=== PATIENT | female | born 1995 | race Hispanic/Latino ===

== ENCOUNTER 2017-01-17 21:24 | Observation (INO) | payer MEDICAID, OTHER ==
[2017-01-17 21:34] VITALS: BMI 22.3
[2017-01-17 21:37] VITALS: O2SAT 100
[2017-01-17] MEDS ORDERED: Sodium Chloride 0.9% 1,000 ML IV STA (21:53)
--- NOTE | 2017-01-17 22:23 | ED PDOC ---
HPI: Psych/Substance Abuse Time Seen by Provider: 01/17/17 21:50 Chief Complaint (Nursing): Substance Abuse Chief Complaint (Provider): Overdose History Per: Patient, Other (roommates) History/Exam Limitations: no limitations Onset/Duration Of Symptoms: Hrs (1 hour prior to arrival) Current Symptoms Are (Timing): Still Present Suicide/Self Injury Attempted (Context): Ingestion Ingestion Of Substance: "2 handfuls" of Advil (200 mg tablets) Modifying Factor(s): Alcohol (patient states that she has been drinking all day) Severity: Moderate Associated Symptoms: Depression, Suicidal Thoughts, Suicidal Plan, Other ( nausea and vomiting) Additional Complaint(s): Kera Espitia is a 21 year old female, with a past medical history of depression (since the age of 14), that presents to the emergency department via EMS for the evaluation of s/p overdose on "2 handfuls" of Advil (200 mg tablets) , that the patient experienced one hour prior to arrival. Patient recently saw her tea room manager who would not provide her with new Lexapro RX due to scope of practice issues. Patient verbalizes suicidal ideation with one attempt in the past, prior to this one, s/p overdosing on Advil. Patient admits to drinking alcohol all day. Associated depression, nausea, and vomiting are currently present. PMD: Dr Holcomb Past Medical History Reviewed: Historical Data, Nursing Documentation, Vital Signs Vital Signs: Last Vital Signs Temp 98.6 F 01/17/17 21:34 Pulse 117 H 01/17/17 21:34 Resp 16 01/17/17 21:34 BP 123/93 H 01/17/17 21:34 Pulse Ox 100 01/17/17 21:34 - Medical History PMH: Depression - Surgical History Other surgeries: Oral Surgery - Family History Family History: States: No Known Family Hx - Social History Alcohol: Occasional Drugs: Prescription medications - Allergies Allergies/Adverse Reactions: Allergies Allergy/AdvReac Type Severity Reaction Status Date / Time No Known Allergies Allergy Verified 01/17/17 21:34 Review of Systems ROS Statement: Except As Marked, All Systems Reviewed And Found Negative Gastrointestinal: Positive for: Nausea, Vomiting Psych: Positive for: Depression, Suicidal ideation Physical Exam - Reviewed Nursing Documentation Reviewed: Yes Vital Signs Reviewed: Yes - Physical Exam Appears: Positive for: Non-toxic, No Acute Distress Head Exam: Positive for: ATRAUMATIC, NORMOCEPHALIC Skin: Positive for: Normal Color, Warm, Dry Eye Exam: Positive for: Normal appearance, EOMI, PERRL Cardiovascular/Chest: Positive for: Regular Rate, Rhythm. Negative for: Murmur Respiratory: Positive for: Normal Breath Sounds. Negative for: Respiratory Distress Gastrointestinal/Abdominal: Positive for: Normal Exam, Soft. Negative for: Tenderness Back: Positive for: Normal Inspection. Negative for: L CVA Tenderness, R CVA Tenderness Extremity: Positive for: Normal ROM. Negative for: Tenderness, Swelling Neurologic/Psych: Positive for: Alert, Oriented, Mood/Affect (labile affect, tearful) - Laboratory Results Result Diagrams: 01/17/17 22:30 01/17/17 22:30 - ECG O2 Sat by Pulse Oximetry: 100 (RA) Pulse Ox Interpretation: Normal Medical Decision Making Medical Decision Makin:50 Initial Impression: 21 year old female with setting of a known depressive disorder and suicidal ideation. Initial Plan: * EKG * Alcohol Serum * CBC * CMP * PT/PTT * Urine Drug Screen * Urine * Urinalysis * Acetaminophen * Salicylate * Accucheck * Sodium Chloride 0.9% 1,000 ml IV at 1,000 mls/hr * Pantoprazole 40 mg IV * Ondansetron 8 mg IV * Poison Control Consult * Crisis Evaluation [id number]: As per reworker and Dr. robertson psychiatrist tape controlled machine stitcher patient doesnt meet the criteria for admission. Diagnosis: depression & overdose [facility] and [facility]. Scribe Attestation: Documented by Bay Louis, acting as a scribe for Quincy Fleming MD. Provider Scribe Attestation: All medical record entries made by the Scribe were at my direction and personally dictated by me. I have reviewed the chart and agree that the record accurately reflects my personal performance of the history, physical exam, medical decision making, and the department course for this patient. I have also personally directed, reviewed, and agree with the discharge instructions and disposition. ED OBSERVATION - Observation admission statement Patient is being placed in observation because:: Pending crisis evaluation and sobriety. - Progress Note Progress Note: 01/18/17 11:00 Vitals are clear and stable. As per reworker and Dr. robertson psychiatrist tape controlled machine stitcher patient doesnt meet criteria for admission Diagnosis: depression & overdose Referred to [facility] Disposition - Clinical Impression Clinical Impression: Overdose, Depression - Patient ED Disposition Is Patient to be Admitted: No Counseled Patient/Family Regarding: Studies Performed, Diagnosis, Need For Followup - Disposition Disposition: Routine/Home Disposition Time: 04:50 Condition: STABLE
[2017-01-17 22:38] LABS: BASO % 0.5 % (0.0-2.0); HEMATOCRIT 36.7 % (34.0-47.0); LYMPH # 1.5 K/uL (1.0-4.3); MEAN CELL VOLUME 96.1 fl (81.0-99.0); MEAN CORPUSCULAR HEMOGLOBIN 33.6 pg (27.0-31.0); MEAN PLATELET VOLUME 7.7 fl (7.2-11.7); MONO # 0.5 K/uL (0.0-0.8); MONO % 11.9 % (0.0-10.0); NEUT # 1.8 K/uL (1.8-7.0); NEUT % 47.6 % (50.0-75.0); NRBC % 0.2 % (0.0-0.0); RED CELL DISTRIBUTION WIDTH 12.8 % (11.5-14.5); WHITE BLOOD COUNT 3.8 K/uL (4.8-10.8)
[2017-01-17 22:50] LABS: ALB/GLOB RATIO 1.8 (1.0-2.1); ALCOHOL SERUM 233 mg/dl (0-10); ALKALINE PHOSPHATASE 59 U/L (38-126); ALT/SGPT 29 U/L (9-52); AST/SGOT 28 U/L (14-36); BILIRUBIN,TOTAL 0.4 mg/dl (0.2-1.3); BLOOD UREA NITROGEN 5 mg/dl (7-17); CARBON DIOXIDE 23 mmol/L (22-30); CHLORIDE 107 mmol/L (98-107); GFR AFRICAN-AMERICAN > 60; GLUCOSE,RANDOM 89 mg/dL (65-105); POTASSIUM 3.8 MMOL/L (3.6-5.0); SODIUM 145 mmol/l (132-148); TOTAL PROTEIN 7.2 G/DL (6.3-8.2)
[2017-01-17 23:00] LABS: PARTIAL THROMBOPLASTIN TIME 21.8 SECONDS (23.3-32.5)
[2017-01-18 01:05] LABS: RBC URINE 4 /hpf (0-3); URINE BILIRUBIN NEGATIVE (NEGATIVE); URINE BLOOD NEGATIVE (NEGATIVE); URINE COLOR YELLOW (YELLOW); URINE GLUCOSE (UA) NEG (Normal); URINE KETONE NEGATIVE (NEGATIVE); URINE LEUKOCYTE ESTERASE NEG Leu/uL (Negative); URINE PROTEIN NEGATIVE (NEGATIVE); URINE UROBILINOGEN 0.2-1.0 mg/dL (0.2-1.0); WBC URINE < 1 /hpf (0-5)
[2017-01-18 05:49] VITALS: BP 119/72; PULSE 93; RESP 14; TEMP 98.4
--- NOTE | 2017-01-19 08:53 | CARD ---
APPROVED REPORT EKG Measurement Heart [id number] <Conclusion> Sinus tachycardia Otherwise normal ECG
== END 2017-01-18 05:20 | disposition home or self-care (01) ==
LOC: H.ER 21:24 → H.EROBSV 23:00
PROVIDERS: ADMIT Emergency Medicine; ATTEND Emergency Medicine
DX: T39.312A Poisoning by propionic acid derivatives, intentional self-harm, initial encounter (principal); Y92.9 Unspecified place or not applicable; R45.851 Suicidal ideations; F32.9 Major depressive disorder, single episode, unspecified

== ENCOUNTER 2018-12-15 10:12 | Emergency (ER) | payer OTHER ==
[2018-12-15 10:33] VITALS: RESP 16; BMI 21.4
--- NOTE | 2018-12-15 10:55 | ED PDOC ---
HPI: Abdomen Time Seen by Provider: 12/15/18 10:34 Chief Complaint (Nursing): Abdominal Pain History Per: Patient Onset/Duration Of Symptoms: Days (2-3) Current Symptoms Are (Timing): Still Present Severity: Moderate Location Of Pain/Discomfort: RLQ Quality Of Discomfort: Sharp Associated Symptoms: Nausea. denies: Fever, Vomiting, Diarrhea Exacerbating Factors: None Alleviating Factors: None Additional Complaint(s): referred from urgent care for 2-3 day h/o sharp RLQ abd pain assoc with nausea. denies vomiting or diarrhea. denies urinary sxs. LMP 1 week ago. Past Medical History Vital Signs: Last Vital Signs Temp 98.5 F 12/15/18 10:32 Pulse 85 12/15/18 10:32 Resp 16 12/15/18 10:32 BP 135/93 H 12/15/18 10:32 Pulse Ox 98 12/15/18 10:32 - Medical History PMH: Depression Denies: Diabetes, Hepatitis, HIV, HTN, Seizures, Sexually Transmitted Disease - Family History Family History: States: Unknown Family Hx - Home Medications Home Medications: Ambulatory Orders Medication Instructions Recorded Naproxen [Naprosyn] 500 mg PO Q12H #20 tab 12/15/18 - Allergies Allergies/Adverse Reactions: Allergies Allergy/AdvReac Type Severity Reaction Status Date / Time No Known Allergies Allergy Verified 01/17/17 21:34 Review of Systems ROS Statement: Except As Marked, All Systems Reviewed And Found Negative Constitutional: Positive for: Chills Gastrointestinal: Positive for: Nausea, Abdominal Pain Physical Exam - Reviewed Nursing Documentation Reviewed: Yes Vital Signs Reviewed: Yes - Physical Exam Appears: Positive for: Non-toxic, No Acute Distress Head Exam: Positive for: ATRAUMATIC, NORMAL INSPECTION, NORMOCEPHALIC Skin: Positive for: Normal Color, Warm, DRY Eye Exam: Positive for: EOMI, Normal appearance, PERRL ENT: Positive for: Normal ENT Inspection Neck: Positive for: Normal, Painless ROM Cardiovascular/Chest: Positive for: Regular Rate, Rhythm Respiratory: Positive for: CNT, Normal Breath Sounds Gastrointestinal/Abdominal: Positive for: Soft, Tenderness (RLQ) Back: Positive for: Normal Inspection Extremity: Positive for: Normal ROM Neurological/Psych: Positive for: Awake, Alert, Normal Tone - Laboratory Results Result Diagrams: 12/15/18 11:12/15/18 11:01 - ECG O2 Sat by Pulse Oximetry: 98 - Progress Re-evaluation Time: 13:34 Condition: Improved Medical Decision Making Medical Decision Making: Small amount of fluid seen on CT in pelvis. May be related to ruptured ovarian cyst. No evidence of acute appendicitis on CT. No GB disease on US. Disposition - Clinical Impression Clinical Impression: Ovarian cyst - Patient ED Disposition Is Patient to be Admitted: No Counseled Patient/Family Regarding: Studies Performed, Diagnosis, Need For Followup, Rx Given - Disposition [facility] Disposition: Routine/Home Disposition Time: 13:37 Condition: FAIR Prescriptions: Naproxen [Naprosyn] 500 mg PO Q12H #20 tab Instructions: Ovarian Cysts Forms: [facility] (Emirati)
[2018-12-15 11:17] LABS: BASO % 0.4 % (0.0-2.0); EOS # 0.1 K/uL (0.0-0.7); HEMOGLOBIN 13.2 g/dL (12.0-16.0); LYMPH % 22.6 % (20.0-40.0); MEAN CELL VOLUME 97.1 fl (81.0-99.0); MEAN CORPUSCULAR HEMOGLOBIN 33.6 pg (27.0-31.0); MEAN CORPUSCULAR HGB CONC 34.6 g/dL (33.0-37.0); MEAN PLATELET VOLUME 7.8 fl (7.2-11.7); MONO # 0.3 K/uL (0.0-0.8); MONO % 7.1 % (0.0-10.0); NEUT # 3.1 K/uL (1.8-7.0); NEUT % 67.9 % (50.0-75.0); RBC 3.93 Mil/uL (3.80-5.20); RED CELL DISTRIBUTION WIDTH 12.7 % (11.5-14.5); WHITE BLOOD COUNT 4.6 K/uL (4.8-10.8)
[2018-12-15 11:37] LABS: ALB/GLOB RATIO 1.6 (1.0-2.1); ALBUMIN 4.5 g/dL (3.5-5.0); ALT/SGPT 37 U/L (9-52); AST/SGOT 40 U/L (14-36); BLOOD UREA NITROGEN 6 mg/dl (7-17); CALCIUM 9.3 mg/dL (8.4-10.2); GFR NON-AFRICAN AMERICAN > 60
[2018-12-15] MEDS ORDERED: Sodium Chloride 0.9% 50 ML IV ONE (12:07)
[2018-12-15] MEDS ORDERED: Iohexol 300 100 ML IJ ONE (12:07)
--- NOTE | 2018-12-15 13:01 | CT ---
Date of service: 12/15/2018 PROCEDURE: CT Abdomen and Pelvis with contrast HISTORY: Abd pain COMPARISON: None. TECHNIQUE: Contrast dose: 100 mL Omnipaque 300 Radiation dose: Total exam DLP = 273.82 mGy-cm. This CT exam was performed using one or more of the following dose reduction techniques: Automated exposure control, adjustment of the mA and/or kV according to patient size, and/or use of iterative reconstruction technique. FINDINGS: LOWER THORAX: Unremarkable. LIVER: Unremarkable. No gross lesion or ductal dilatation. GALLBLADDER AND BILE DUCTS: Unremarkable. PANCREAS: Unremarkable. No gross lesion or ductal dilatation. SPLEEN: Unremarkable. ADRENALS: Unremarkable. No mass. KIDNEYS AND URETERS: Unremarkable. No hydronephrosis. No solid mass. VASCULATURE: Unremarkable. No aortic aneurysm. No aortic atherosclerotic calcification or mural plaque present. BOWEL: Limited exam guarding the small large bowel no oral contrast administered. Several of the small bowel loops have moderate amount of fluid within them excluding any small inter loop fluid collections would be is difficult to entirely excluded; however this is not believed likely. No suspect obstruction. No gross mural thickening. APPENDIX: The appendix is not identified with certainty. No pericecal phlegmonous like changes of the surrounding pericolonic fat to suggest this. Phlegmonous changes of the surrounding pericolonic fat identified. PERITONEUM: Mild amount of free fluid in the cul-de-sac present. No free air. LYMPH NODES: Unremarkable. No enlarged lymph nodes. BLADDER: Moderately distended. REPRODUCTIVE: Separation of the ovaries from the uterus is difficult. This is also difficult the 2 separate ovaries from non opacified contiguous bowel loops. BONES: No acute fracture. OTHER FINDINGS: None. IMPRESSION: Moderate amount of free fluid in the cul-de-sac. The exam is limited in identifying contrast laden bowel loop from the ovaries if ovarian assessment is needed, consider pelvic/transvaginal ultrasound imaging. No bowel contrast opacification on this IV only CT study.. Although no small or large bowel obstruction is suggested. Many of the non dilated small bowel loops have moderate amounts of fluid within them. This is nonspecific. No marked mural thickening or enhancement seen. A mild enteritis is possible. Non visualized appendix-no pericecal phlegmonous like changes of the surrounding pericolonic fat to suggest this.
--- NOTE | 2018-12-15 13:09 | US ---
Date of service: 12/15/2018 HISTORY: Elevated LFTs COMPARISON: None. TECHNIQUE: Sonographic evaluation of the right upper quadrant of the abdomen. FINDINGS: LIVER: Measures 14.2 cm in length. Normal echogenicity of the liver parenchyma. No mass. No intrahepatic bile duct dilatation. GALLBLADDER: There are no gallstones, wall thickening or pericholecystic fluid. The sonographic Schilling's sign is negative. COMMON BILE DUCT: Measures 1.3 mm. No stones. No dilatation. PANCREAS: Unremarkable as visualized. No mass. No ductal dilatation. RIGHT KIDNEY: Measures 10.8 cm in length. Normal echogenicity. No calculus, mass, or hydronephrosis. AORTA: No aneurysmal dilatation. IVC: Unremarkable. OTHER FINDINGS: None . IMPRESSION: No cholelithiasis or biliary dilatation.
[2018-12-15 14:01] VITALS: BP 130/88; PULSE 80; TEMP 98.6; O2SAT 97
== END 2018-12-15 13:59 | disposition home or self-care (01) ==
LOC: H.ER 10:12
DX: N83.209 Unspecified ovarian cyst, unspecified side (principal)
CPT/HCPCS: 74177; 76705; 80053; 81025; 85025; 96374; 99284; J2405; Q9967